=== PATIENT | female | born 1945 | race Hispanic/Latino ===

== ENCOUNTER 2017-06-24 15:12 | Outpatient (CLI) | payer MEDICARE, MEDICAID ==
--- NOTE | 2017-06-25 09:37 | SJPRAD ---
THREE VIEWS RIGHT SHOULDER: Date: 06-25-17 Comparison: None. History: Right shoulder pain. FINDINGS: There is degenerative change involving the right acromioclavicular joint with joint space narrowing, subchondral sclerosis and osteophyte formation superiorly and inferiorly. There is no widening of the coracoclavicular interspace. There is no displaced fracture or dislocation seen. IMPRESSION: Right AC joint degenerative change with no acute fracture or dislocation seen. POS: [facility]
== END 2017-06-24 15:13 | disposition home or self-care (01) ==
LOC: MWLC RAD 15:12
PROVIDERS: ATTEND Family Medicine
DX: M25.511 Pain in right shoulder (principal)

== ENCOUNTER 2017-06-30 09:27 | Outpatient (CLI) | payer MEDICARE, MEDICAID ==
--- NOTE | 2017-06-30 14:00 | MMO ---
BILATERAL DIAGNOSTIC MAMMOGRAMS: Date: 06/30/17 Diagnostic study is performed because of history of breast cancer. There is a history of left breast cancer in 2012 Comparison made to films from 2013, 2015, and 2016. FINDINGS: Postoperative changes on the left again noted. There are benign-appearing calcifications in both celina sts. No mass or distortion. No interval change seen. Recommend one year follow-up. IMPRESSION: BIRADS 2: Benign Finding(s) POS: [facility]
== END 2017-06-30 09:28 | disposition home or self-care (01) ==
LOC: MAMMO 09:27
PROVIDERS: ATTEND Internal Medicine Medical Oncology
DX: C50.919 Malignant neoplasm of unspecified site of unspecified female breast (principal)
CPT/HCPCS: 77066; G0204

== ENCOUNTER 2017-12-24 14:56 | Outpatient (CLI) | payer MEDICARE, MEDICAID | END 2017-12-24 14:57 | disposition home or self-care (01) | LOC: BICRAD 14:56 | PROVIDERS: ATTEND Family Medicine | DX: M16.12 Unilateral primary osteoarthritis, left hip (principal); R91.8 Other nonspecific abnormal finding of lung field | CPT/HCPCS: 71046 ==

== ENCOUNTER 2018-03-09 14:26 | Outpatient (CLI) | payer MEDICARE, MEDICAID | END 2018-03-09 14:27 | disposition home or self-care (01) | LOC: BICRAD 14:26 | PROVIDERS: ATTEND Family Medicine | DX: M60.811 Other myositis, right shoulder (principal); M54.9 Dorsalgia, unspecified; R93.8 Abnormal findings on diagnostic imaging of other specified body structures | CPT/HCPCS: 72072; 72100 ==

== ENCOUNTER 2018-07-01 09:12 | Outpatient (CLI) | payer MEDICARE, MEDICAID ==
--- NOTE | 2018-07-01 12:32 | BD ---
DEXA Bone Density: INDICATION: Osteopenia, postmenopausal bone mineral screening evaluation. Lumbar Spine: BMD (g/cm2) L1 0.879 T-Score: -1.0 L2 0.853 T-Score: -1.6 L3 0.84 T-Score: -2.2 L4 0.78 T-Score: -2.5 L1-L4 0.84 T-Score: -1.9 Femoral Neck: 0.678 T-Score: -1.6 Total Femur: 0.98 T-Score: 0.4 Impression: T-scores indicate osteopenia placing the patient at increased risk for fracture. Major 10-year osteo porotic fracture risk is calculated at 16%. POS: [facility]
== END 2018-07-01 09:13 | disposition home or self-care (01) ==
LOC: BICMAMMO 09:12
PROVIDERS: ATTEND Internal Medicine Medical Oncology
DX: Z12.31 Encounter for screening mammogram for malignant neoplasm of breast (principal); C50.919 Malignant neoplasm of unspecified site of unspecified female breast; M85.89 Other specified disorders of bone density and structure, multiple sites
CPT/HCPCS: 77063; 77067; 77080

== ENCOUNTER 2018-07-21 10:17 | Outpatient (CLI) | payer MEDICARE, MEDICAID ==
--- NOTE | 2018-07-21 11:21 | RAD ---
PA AND LATERAL CHEST: INDICATIONS: Dyspnea. COMPARISON: Prior PA and lateral dated 01/14/2018. FINDINGS: There is stable cardiomegaly. There are scattered areas of bronchiectasis and fibrosis, which are st able. No confluent air space opacity is evident. Surgical clips are seen within the right upper jessica drant, consistent with cholecystectomy. No acute osseous abnormality is evident. IMPRESSION: 1. Stable chronic lung changes. 2. Stable cardiomegaly. POS: [facility]
== END 2018-07-21 10:18 | disposition home or self-care (01) ==
LOC: RAD 10:17
PROVIDERS: ATTEND Internal Medicine Pulmonary Disease
DX: R06.00 Dyspnea, unspecified (principal); I51.7 Cardiomegaly; J98.4 Other disorders of lung
CPT/HCPCS: 71046

== ENCOUNTER 2018-08-01 09:33 | Emergency (ER) | payer MEDICARE, MEDICAID ==
[2018-08-01] MEDS ORDERED: Fluorescein Opthalmic Strip ONE (10:26)
[2018-08-01] MEDS ORDERED: Proparacaine 0.5% Opth 15 ML BOT ONE (10:30)
[2018-08-01] MEDS ORDERED: Nitrazine Tape 1 ROLL ONE (10:32)
== END 2018-08-01 14:00 | disposition home or self-care (01) ==
LOC: ERS 09:33
DX: H54.7 Unspecified visual loss (principal); E78.5 Hyperlipidemia, unspecified; I10 Essential (primary) hypertension; Z79.899 Other long term (current) drug therapy; Z79.84 Long term (current) use of oral hypoglycemic drugs
CPT/HCPCS: 99284

== ENCOUNTER 2018-10-12 07:18 | Emergency (ER) | payer MEDICARE, MEDICAID ==
--- NOTE | 2018-10-12 09:09 | RAD ---
RIGHT HIP 2 VIEWS: INDICATION: Trauma. Injury with pain. FINDINGS: There are degenerative changes at the hip with spurring from the femoral head. There is irregularity along the superior cortex of the subcapital region seen on the AP projection. A fracture is not see n on the lateral view; however, I cannot exclude a subcapital fracture. Recommend further evaluation with CT scan right hip. POS: [facility]
--- NOTE | 2018-10-12 09:18 | CT ---
CT OF RIGHT HIP PERFORMED WITHOUT CONTRAST ENHANCEMENT: HISTORY: Right hip pain that has worsened over the past weekend. FINDINGS: The visualized intrapelvic contents appear unremarkable. There are arthritic changes of the hip. There is spurring along the femoral head and neck junction. I do not appreciate a significant degree of joint space narrowing. There is some spurring along the margin of the acetabulum. There are no signs of any fractures. There are arthritic changes of the symphysis pubis incidentally noted. No signs of any enlarged bursa or any type of soft tissue mass. IMPRESSION: Mild arthritic changes of the right hip. POS: [facility]
== END 2018-10-12 09:06 | disposition home or self-care (01) ==
LOC: ERS 07:18
DX: M16.11 Unilateral primary osteoarthritis, right hip (principal); E11.9 Type 2 diabetes mellitus without complications; E78.5 Hyperlipidemia, unspecified; I10 Essential (primary) hypertension; Z79.899 Other long term (current) drug therapy; Z79.84 Long term (current) use of oral hypoglycemic drugs

== ENCOUNTER 2018-11-26 00:11 | Outpatient (CLI) | payer MEDICARE, MEDICAID ==
[2018-11-26 10:30] LABS: Hemoglobin 12.1 g/dL (12.0-16.0); Mean Corpuscular HGB CONC 33.7 g/dL (32.0-36.0); Mean Platelet Volume 7.2 fL (7.4-10.4); Platelet Count 212 thou/uL (130-400); RBC Distribution Width 11.1 % (11.5-14.5); Red Blood Cell (RBC) Count 3.78 mill/uL (4.20-5.40); White Blood Cell (WBC) Count 7.2 thou/uL (4.8-10.8)
[2018-11-26 10:50] LABS: Anion Gap 15 mmol/L (10-20); BUN (Urea Nitrogen) 27 mg/dL (9.8-20.1); Calc. Creatinine Clearance 0 mL/min (70-130); Calcium 10.1 mg/dL (7.8-10.44); Carbon Dioxide 28 mmol/L (23-31); Chloride 101 mmol/L (98-107); Estimated GFR-MDRD 39; Glucose 166 mg/dL (83-110); Potassium 4.6 mmol/L (3.5-5.1); Sodium 139 mmol/L (136-145)
== END 2018-11-26 00:12 | disposition home or self-care (01) ==
LOC: LABBT 00:11
PROVIDERS: ATTEND Internal Medicine Cardiovascular Disease
DX: Z01.812 Encounter for preprocedural laboratory examination (principal)
CPT/HCPCS: 80048; 85027; 85610

== ENCOUNTER 2018-11-30 05:50 | Day surgery (SDC) | payer MEDICARE, MEDICAID ==
[2018-11-26 09:55] VITALS: BMI 33.2
[2018-11-30] MEDS ORDERED: Diazepam 5 MG TAB ONE (06:12)
[2018-11-30 06:55] LABS: Anion Gap 14 mmol/L (10-20); BUN (Urea Nitrogen) 15 mg/dL (9.8-20.1); Calc. Creatinine Clearance 56 mL/min (70-130); Calcium 9.9 mg/dL (7.8-10.44); Carbon Dioxide 23 mmol/L (23-31); Chloride 96 mmol/L (98-107); Estimated GFR-MDRD 49; Glucose 123 mg/dL (83-110); Potassium 4.4 mmol/L (3.5-5.1); Sodium 129 mmol/L (136-145)
[2018-11-30] MEDS ORDERED: Midazolam HCl 2 mg/2 ml Vial ONE (07:27)
[2018-11-30] MEDS ORDERED: Fentanyl 100 MCG/2 ML VIAL ONE (07:27)
[2018-11-30] MEDS ORDERED: Iopamidol 370 76% 100 ML VIAL ONE (09:50)
== END 2018-11-30 11:07 | disposition home or self-care (01) ==
LOC: CCL 05:50
PROVIDERS: ATTEND Internal Medicine Cardiovascular Disease
PROC: 4A023N7 Measurement of Cardiac Sampling and Pressure, Left Heart, Percutaneous Approach (ICD-10-PCS; principal; 2018-11-30)
PROC: B2111ZZ Fluoroscopy of Multiple Coronary Arteries using Low Osmolar Contrast (ICD-10-PCS; 2018-11-30)
DX: I25.10 Atherosclerotic heart disease of native coronary artery without angina pectoris (principal); E11.9 Type 2 diabetes mellitus without complications; I10 Essential (primary) hypertension; E78.00 Pure hypercholesterolemia, unspecified; M19.90 Unspecified osteoarthritis, unspecified site; Z79.82 Long term (current) use of aspirin; Z79.83 Long term (current) use of bisphosphonates; Z79.84 Long term (current) use of oral hypoglycemic drugs; Z79.899 Other long term (current) drug therapy; Z91.040 Latex allergy status
CPT/HCPCS: 76942; 80048; 93458; 99152; C1760; C1769; J1644; J2250; J3010; Q9967

== ENCOUNTER 2019-01-18 12:56 | Outpatient (CLI) | payer MEDICARE, MEDICAID ==
--- NOTE | 2019-01-18 13:13 | RAD ---
XR Chest Pa Lat @ [facility] HISTORY: Dyspnea COMPARISON: 07/21/2018 FINDINGS: The heart is enlarged but stable. The aorta is tortuous. Chronic changes again seen bilater ally. No lobar consolidation, pneumothoraces, merna pulmonary edema or pleural effusions are seen. There are degenerative changes in the spine. IMPRESSION: Stable exam. No radiographic evidence of acute cardiopulmonary process.
== END 2019-01-18 12:57 | disposition home or self-care (01) ==
LOC: RAD 12:56
PROVIDERS: ATTEND Internal Medicine Pulmonary Disease
DX: R06.00 Dyspnea, unspecified (principal)
CPT/HCPCS: 71046

== ENCOUNTER 2019-03-13 05:22 | Emergency (ER) | payer MEDICARE, MEDICAID ==
--- NOTE | 2019-03-13 07:42 | RAD ---
EXAM: 3 views of the right foot HISTORY: Fall with right foot pain COMPARISON: None FINDINGS: 3 views of the right foot shows fractures of the necks of the third through fifth metatarsa ls. Mild soft tissue swelling is seen. No degenerative changes are present. IMPRESSION: Third through fifth metatarsal fractures
--- NOTE | 2019-03-13 07:43 | RAD ---
EXAM: 3 views of the left wrist HISTORY: Wrist pain after fall COMPARISON: None FINDINGS: 3 views of the left wrist shows a fracture of the distal radius which is intra-articular. A n associated ulnar styloid fracture is seen. Mild soft tissue swelling is seen. No degenerative changes are present. IMPRESSION: Distal radius and associated ulnar styloid fracture.
== END 2019-03-13 06:24 | disposition home or self-care (01) ==
LOC: ERS 05:22
DX: S52.502A Unspecified fracture of the lower end of left radius, initial encounter for closed fracture (principal); S52.612A Displaced fracture of left ulna styloid process, initial encounter for closed fracture; S92.332A Displaced fracture of third metatarsal bone, left foot, initial encounter for closed fracture; S92.342A Displaced fracture of fourth metatarsal bone, left foot, initial encounter for closed fracture; S92.352A Displaced fracture of fifth metatarsal bone, left foot, initial encounter for closed fracture; E78.5 Hyperlipidemia, unspecified; I10 Essential (primary) hypertension; E11.9 Type 2 diabetes mellitus without complications; Z79.84 Long term (current) use of oral hypoglycemic drugs; Z79.82 Long term (current) use of aspirin; Z79.899 Other long term (current) drug therapy; Z85.3 Personal history of malignant neoplasm of breast; W18.09XA Striking against other object with subsequent fall, initial encounter
CPT/HCPCS: 25600; 28470

== ENCOUNTER 2019-04-15 12:15 | Outpatient (CLI) | payer MEDICARE, MEDICAID ==
--- NOTE | 2019-04-15 13:00 | ULT ---
EXAM: Left lower extremity venous Doppler HISTORY: left lower extremity edema. FINDINGS: Grayscale, color-flow, Doppler evaluation, spectral analysis of the left lower extremity venous struc tures is performed with 2-D imaging. The left common femoral, superficial femoral, popliteal, posterior tibial, proximal greater saphenous and profunda femoral veins are imaged. There is normal luminal compressibility, flow, and augmentation in the visualized deep venous structu res of the left lower extremity. IMPRESSION: No evidence of a deep vein thrombosis in the visualized deep venous structures left lower extremity.
== END 2019-04-15 12:16 | disposition home or self-care (01) ==
LOC: BICULT 12:15
PROVIDERS: ATTEND Family Medicine
DX: M79.89 Other specified soft tissue disorders (principal); R60.9 Edema, unspecified

== ENCOUNTER 2019-04-18 14:38 | Emergency (ER) | payer MEDICARE, MEDICAID ==
[2019-04-18] MEDS ORDERED: Meclizine HCl 25 MG TAB ONE (15:31)
[2019-04-18] MEDS ORDERED: Ondansetron PF 4 MG/2 ML Vial ONE (15:31)
--- NOTE | 2019-04-18 15:53 | CT ---
CT OF BRAIN PERFORMED WITHOUT CONTRAST ENHANCEMENT: HISTORY: Syncopal episode. FINDINGS: Ventricular and cisternal system shows fairly age appropriate change. There are no signs of intracer ebral hemorrhage or extraaxial fluid collections. The mastoid air cells and visualized sinuses are c lear. IMPRESSION: No acute intracranial abnormalities. POS: [facility]
[2019-04-18 16:00] LABS: #Eosinphils 0.1 thou/uL (0.0-0.7); #Lymphocytes 1.7 thou/uL (1.20-3.40); #Monocytes 0.5 thou/uL (0.11-0.59); #Neutrophils 4.2 thou/uL (1.40-6.50); %Basophils 0.6 % (0.0-1.0); %Eosinophils 2.1 % (0.0-10.0); %Lymphocytes 25.6 % (21.0-51.0); %Neutrophils 64.7 % (42.0-75.0); Mean Corpuscular HGB CONC 35.3 g/dL (32.0-36.0); Mean Corpuscular Volume 93.4 fL (78.0-98.0); Mean Platelet Volume 6.8 fL (7.4-10.4); Platelet Count 203 thou/uL (130-400); RBC Distribution Width 10.8 % (11.5-14.5); Red Blood Cell (RBC) Count 3.62 mill/uL (4.20-5.40); White Blood Cell (WBC) Count 6.5 thou/uL (4.8-10.8)
[2019-04-18 16:20] LABS: ALT (SGPT) 15 U/L (8-55); AST (SGOT) 19 U/L (5-34); Albumin 4.4 g/dL (3.4-4.8); Alkaline Phosphatase 51 U/L (40-150); Anion Gap 15 mmol/L (10-20); BUN (Urea Nitrogen) 28 mg/dL (9.8-20.1); Bilirubin, Total 0.4 mg/dL (0.2-1.2); Calc. Creatinine Clearance 0 mL/min (70-130); Calcium 10.2 mg/dL (7.8-10.44); Carbon Dioxide 23 mmol/L (23-31); Chloride 97 mmol/L (98-107); Estimated GFR-MDRD 34; Globulin 2.7 g/dL (2.4-3.5); Glucose 184 mg/dL (83-110); Potassium 5.1 mmol/L (3.5-5.1); Protein, Total 7.1 g/dL (6.0-8.3); Sodium 130 mmol/L (136-145)
[2019-04-18 16:49] LABS: Bilirubin Negative (Negative); Blood, Urine Negative (Negative); Clarity Clear (Clear); Glucose, Urine (Dipstick) Normal (Negative); Leukocyte Negative Leu/uL (Negative); Nitrite Negative (Negative); Protein, Urine (Dipstick) Negative (Neg-Trace); Urobilinogen Normal mg/dL (Less than 2)
== END 2019-04-18 18:32 | disposition home or self-care (01) ==
LOC: ERS 14:38
DX: R42 Dizziness and giddiness (principal); E11.9 Type 2 diabetes mellitus without complications; E78.5 Hyperlipidemia, unspecified; I10 Essential (primary) hypertension
CPT/HCPCS: 36416; 70450; 80053; 81003; 85025; 96374; J2405; J8597

== ENCOUNTER 2019-07-05 11:53 | Outpatient (CLI) | payer MEDICARE, MEDICAID ==
--- NOTE | 2019-07-05 13:25 | MMO ---
Bilateral MAMMO Bilat Screen [facility]. CLINICAL HISTORY: Patient is 73 years old and is seen for screening. The patient has no family history of breast cancer. 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 The patient has a history of left Lumpectomy in 2012 - malignant. VIEWS: The views performed were: bilateral craniocaudal with tomosynthesis; bilateral mediolateral oblique with tomosynthesis; and left craniocaudal. FILMS COMPARED: The present examination has been compared to prior imaging studies performed at [facility] on 07/13/2010, 04/15/2012 and 07/01/2018. This study has been interpreted with the assistance of computer-aided detection. MAMMOGRAM FINDINGS: There are scattered fibroglandular densities. There are stable benign appearing calcifications seen in both breasts. There are also vascular calcifications. There are no suspicious masses, suspicious calcifications, or new areas of architectural distortion. IMPRESSION: THERE IS NO MAMMOGRAPHIC EVIDENCE OF MALIGNANCY. A ROUTINE FOLLOW-UP MAMMOGRAM IN 1 YEAR IS RECOMMENDED. THE RESULTS OF THIS EXAM WERE SENT TO THE PATIENT. ACR BI-RADS Category 2 - Benign finding MAMMOGRAPHY NOTE: 1. A negative mammogram report should not delay a biopsy if a dominant of clinically suspicious mass is present. 2. Approximately 10% to 15% of breast cancers are not detected by mammography. 3. Adenosis and dense breasts may obscure an underlying neoplasm. Reported by: MÓNICA RAINEY MD Electonically Signed: [id number]
== END 2019-07-05 11:54 | disposition home or self-care (01) ==
LOC: BICMAMMO 11:53
PROVIDERS: ATTEND Internal Medicine Medical Oncology
DX: Z12.31 Encounter for screening mammogram for malignant neoplasm of breast (principal); Z98.890 Other specified postprocedural states
CPT/HCPCS: 77063; 77067

== ENCOUNTER 2019-08-16 12:53 | Outpatient (CLI) | payer MEDICARE, MEDICAID ==
--- NOTE | 2019-08-16 14:25 | BD ---
DEXA BONE DENSITY SCAN: DATE: 08/16/2019. COMPARISON: None. HISTORY: Evaluate for osteoporosis, postmenopausal female. FINDINGS: Lumbar Spine: BMD (g/cm2) L1 0.843 T-Score: -1.3 L2 0.885 T-Score: -1.3 L3 0.857 T-Score: -2.1 L4 0.883 T-Score: -1.6 Femoral Neck: 0.690 T-Score: -1.4 Total Femur: 0.987 T-Score: 0.4 The FRAX-WHO fracture risk assessment tool is not reported as the patient is being treated for osteo porosis IMPRESSION: Osteopenia within the lumbar spine and femoral neck correlating with a moderately increased risk for fracture. Transcribed Date/Time: 08/16/2019 3:08 PM
== END 2019-08-16 12:54 | disposition home or self-care (01) ==
LOC: BICMAMMO 12:53
PROVIDERS: ATTEND Internal Medicine Medical Oncology
DX: M85.89 Other specified disorders of bone density and structure, multiple sites (principal); C50.919 Malignant neoplasm of unspecified site of unspecified female breast; Z78.0 Asymptomatic menopausal state
CPT/HCPCS: 77080

== ENCOUNTER 2020-02-29 14:40 | Outpatient (CLI) | payer MEDICARE, MEDICAID ==
--- NOTE | 2020-02-29 15:14 | ULT ---
EXAM: Soft tissue ultrasound of the left knee DATE: 02/29/2020 12:00 AM INDICATION: Left knee pain for 2 months concern for Cabrales's cyst COMPARISON: None. FINDING: No visible Cabrales's cyst is evident. No sonographic abnormalities seen within additional reg ions of pain in the left knee IMPRESSION:No sonographic abnormality demonstrated.
== END 2020-02-29 14:41 | disposition home or self-care (01) ==
LOC: BICULT 14:40
PROVIDERS: ATTEND Family Medicine
DX: M25.562 Pain in left knee (principal)
CPT/HCPCS: 76999

== ENCOUNTER 2020-07-18 12:36 | Outpatient (CLI) | payer MEDICARE, MEDICAID ==
--- NOTE | 2020-07-18 13:14 | RAD ---
EXAM: CHEST TWO VIEWS 07/18/2020 1:11 PM HISTORY: Dyspnea COMPARISON: January 18, 2019 FINDINGS: Lungs: No acute airspace consolidation is evident. There is stable mild prominence of the interstiti al lung markings which may reflect some sequela of underlying interstitial fibrosis. Heart: Stable mild cardiomegaly Pulmonary Vessels: Normal. Costophrenic Angles: Clear. Pneumothorax: None. Osseous Structures: There is scattered degenerative and osteoarthritic change present. Additional Findings: There are cholecystectomy clips within the right upper quadrant of the abdomen . IMPRESSION: Mild cardiomegaly without evidence of cardiac decompensation. Persistent mild prominence of the interstitial lung markings likely reflecting sequela of mild underl mihir interstitial fibrosis.
== END 2020-07-18 12:37 | disposition home or self-care (01) ==
LOC: BICRAD 12:36
PROVIDERS: ATTEND Internal Medicine Pulmonary Disease
DX: R06.00 Dyspnea, unspecified (principal); I51.7 Cardiomegaly; J84.89 Other specified interstitial pulmonary diseases
CPT/HCPCS: 71046

== ENCOUNTER 2020-07-31 13:50 | Outpatient (CLI) | payer MEDICARE, MEDICAID ==
--- NOTE | 2020-07-31 14:56 | MMO ---
Bilateral MAMMO Bilat Screen [facility]. CLINICAL HISTORY: Patient is 75 years old and is seen for screening. The patient has no family history of breast cancer. 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 The patient has a history of left Lumpectomy in 2012 - malignant. VIEWS: The views performed were: bilateral craniocaudal with tomosynthesis and bilateral mediolateral oblique with tomosynthesis. FILMS COMPARED: The present examination has been compared to prior imaging studies performed at [facility] on 07/13/2010, 04/15/2012, 07/01/2018 and 07/05/2019. This study has been interpreted with the assistance of computer-aided detection. MAMMOGRAM FINDINGS: There are scattered fibroglandular densities. Benign calcifications are noted bilaterally. There are stable left post-operative changes. There are no suspicious masses, suspicious calcifications, or new areas of architectural distortion. IMPRESSION: THERE IS NO MAMMOGRAPHIC EVIDENCE OF MALIGNANCY. A ROUTINE FOLLOW-UP MAMMOGRAM IN 1 YEAR IS RECOMMENDED. THE RESULTS OF THIS EXAM WERE SENT TO THE PATIENT. ACR BI-RADS Category 2 - Benign finding MAMMOGRAPHY NOTE: 1. A negative mammogram report should not delay a biopsy if a dominant of clinically suspicious mass is present. 2. Approximately 10% to 15% of breast cancers are not detected by mammography. 3. Adenosis and dense breasts may obscure an underlying neoplasm. Reported by: DEE DEE MELENDEZ MD Electonically Signed: [id number]
== END 2020-07-31 13:51 | disposition home or self-care (01) ==
LOC: BICMAMMO 13:50
PROVIDERS: ATTEND Internal Medicine Medical Oncology
DX: Z12.31 Encounter for screening mammogram for malignant neoplasm of breast (principal); Z85.3 Personal history of malignant neoplasm of breast; Z98.890 Other specified postprocedural states
CPT/HCPCS: 77063; 77067

== ENCOUNTER 2020-08-17 13:02 | Outpatient (CLI) | payer MEDICARE, MEDICAID ==
--- NOTE | 2020-08-17 14:34 | BD ---
EXAM: DEXA bone density examination HISTORY: 75-year-old postmenopausal female for screening COMPARISON: 08/16/2019 FINDINGS: L1--bone mineral density 0.940 g/sq cm; T score -0.5 L2--bone mineral density 0.776 g/sq cm; T score -2.3 L3--bone mineral density 0.860 g/sq cm; T score -2.0 L4--bone mineral density 0.854 g/sq cm; T score -1.9 Total L1-L4--bone mineral density 0.859 g/sq cm; T score -1.7 Left femoral neck--bone mineral density0.651; T score -1.8 Total proximal left femur--bone mineral density 0.973; T score 0.3 IMPRESSION: Osteopenia. The bone density in the hip and spine have not changed significantly compared to the prior exam.
== END 2020-08-17 13:03 | disposition home or self-care (01) ==
LOC: BICMAMMO 13:02
PROVIDERS: ATTEND Internal Medicine Medical Oncology
DX: Z13.820 Encounter for screening for osteoporosis (principal); C50.212 Malignant neoplasm of upper-inner quadrant of left female breast; N95.8 Other specified menopausal and perimenopausal disorders; M85.89 Other specified disorders of bone density and structure, multiple sites
CPT/HCPCS: 77080

== ENCOUNTER 2021-06-04 09:48 | Outpatient (CLI) | payer MEDICARE, MEDICAID, OTHER | END 2021-06-04 09:49 | disposition home or self-care (01) | LOC: RAD 09:48 | PROVIDERS: ATTEND Internal Medicine Pulmonary Disease | DX: R06.00 Dyspnea, unspecified (principal) | CPT/HCPCS: 71046 ==

== ENCOUNTER 2021-08-01 09:49 | Outpatient (CLI) | payer MEDICARE, MEDICAID | END 2021-08-01 09:50 | disposition home or self-care (01) | LOC: BICMAMMO 09:49 | PROVIDERS: ATTEND Internal Medicine Medical Oncology | DX: Z12.31 Encounter for screening mammogram for malignant neoplasm of breast (principal); Z85.3 Personal history of malignant neoplasm of breast; Z98.890 Other specified postprocedural states | CPT/HCPCS: 77063; 77067 ==

== ENCOUNTER 2021-12-17 13:09 | Outpatient (CLI) | payer MEDICARE, MEDICAID | END 2021-12-17 13:10 | disposition home or self-care (01) | LOC: BICMAMMO 13:09 | PROVIDERS: ATTEND Internal Medicine Medical Oncology | DX: M85.851 Other specified disorders of bone density and structure, right thigh (principal); M85.852 Other specified disorders of bone density and structure, left thigh; M81.0 Age-related osteoporosis without current pathological fracture; Z85.3 Personal history of malignant neoplasm of breast | CPT/HCPCS: 77080 ==

== ENCOUNTER 2021-12-25 18:59 | Inpatient (IN) | payer MEDICARE, MEDICAID ==
[2021-12-25 19:27] LABS: #Eosinphils 0.2 thou/uL (0.0-0.7); #Lymphocytes 2.1 thou/uL (1.20-3.40); #Monocytes 0.6 thou/uL (0.11-0.59); #Neutrophils 5.4 thou/uL (1.40-6.50); %Basophils 0.6 % (0.0-1.0); %Eosinophils 2.5 % (0.0-10.0); %Lymphocytes 25.4 % (21.0-51.0); %Monocytes 6.7 % (0.0-10.0); %Neutrophils 64.7 % (42.0-75.0); Mean Corpuscular HGB CONC 33.7 g/dL (32.0-36.0); Mean Corpuscular Hemoglobin 32.8 pg (27.0-31.0); Mean Corpuscular Volume 97.3 fL (78.0-98.0); Mean Platelet Volume 6.9 fL (7.4-10.4); Platelet Count 234 thou/uL (130-400); RBC Distribution Width 10.8 % (11.5-14.5); Red Blood Cell (RBC) Count 3.66 mill/uL (4.20-5.40); White Blood Cell (WBC) Count 8.3 thou/uL (4.8-10.8)
[2021-12-25 19:53] LABS: ALT (SGPT) 14 U/L (8-55); AST (SGOT) 24 U/L (5-34); Albumin 4.6 g/dL (3.4-4.8); Alkaline Phosphatase 54 U/L (40-110); Anion Gap 13 mmol/L (10-20); BUN (Urea Nitrogen) 27 mg/dL (9.8-20.1); Bilirubin, Total 0.4 mg/dL (0.2-1.2); Calc. Creatinine Clearance 0 mL/min (70-130); Calcium 9.7 mg/dL (7.8-10.44); Carbon Dioxide 22 mmol/L (23-31); Chloride 104 mmol/L (98-107); Globulin 2.9 g/dL (2.4-3.5); Glucose 180 mg/dL (83-110); Protein, Total 7.5 g/dL (5.8-8.1); Sodium 132 mmol/L (136-145)
[2021-12-25 20:12] LABS: Potassium 6.7 mmol/L (3.5-5.1)
[2021-12-25] MEDS ORDERED: Furosemide 40 MG/4 ML VIAL ONE (20:16)
[2021-12-25] MEDS ORDERED: Calcium Gluc 4.6 MEQ/10 ML (100 MG/ML) ONE (20:25)
[2021-12-25] MEDS ORDERED: CALCIUM GLUC 1GM/NS 50ML BAG ONE (20:25)
[2021-12-25] MEDS ORDERED: Sodium Bicarb 50 MEQ/50 ML Abboject 8.4% SYRINGE ONE (20:27)
[2021-12-25] MEDS ORDERED: Insulin Regular 300 UNITS/3 ML VIAL ONE (20:28)
[2021-12-25] MEDS ORDERED: Dextrose 50% Abboject 50 ML SYRINGE SLOW IVP SCH (20:45)
[2021-12-25] MEDS ORDERED: Albuterol Sulfate 2.5 mg/3 ml Neb ONE (20:49)
[2021-12-25] MEDS ORDERED: Sodium Chloride 0.9% 1,000 ML IV SCH (21:00)
[2021-12-25 23:10] VITALS: BMI 40.5
[2021-12-26 00:39] LABS: Anion Gap 19 mmol/L (10-20); BUN (Urea Nitrogen) 27 mg/dL (9.8-20.1); Calc. Creatinine Clearance 41 mL/min (70-130); Calcium 10.3 mg/dL (7.8-10.44); Carbon Dioxide 19 mmol/L (23-31); Chloride 103 mmol/L (98-107); Glucose 133 mg/dL (83-110); Potassium 6.1 mmol/L (3.5-5.1); Sodium 135 mmol/L (136-145)
[2021-12-26] MEDS: Sodium Chloride 0.9% 1,000 ML IV SCH ×2 (00:44→14:30)
[2021-12-26] MEDS ORDERED: Ondansetron ODT 4 MG TAB PO PRN (00:55)
[2021-12-26] MEDS ORDERED: Ondansetron PF 4 MG/2 ML Vial IVP PRN (00:55)
[2021-12-26] MEDS ORDERED: Acetaminophen 325 MG TAB PO PRN (00:55)
[2021-12-26] MEDS ORDERED: Acetaminophen 650 MG Suppository PR PRN (00:55)
[2021-12-26] MEDS ORDERED: Dextrose 5% in Water 1,000 ML IV PRN (00:59)
[2021-12-26] MEDS ORDERED: Dextrose 50% Abboject 50 ML SYRINGE SLOW IVP PRN (00:59)
[2021-12-26] MEDS ORDERED: HumaLOG 300 UNITS/3 ML VIAL SC PRN (00:59)
[2021-12-26 04:53] LABS: #Basophils 0.1 thou/uL (0.0-0.2); #Eosinphils 0.1 thou/uL (0.0-0.7); #Lymphocytes 1.8 thou/uL (1.20-3.40); #Monocytes 0.7 thou/uL (0.11-0.59); %Basophils 0.6 % (0.0-1.0); %Eosinophils 0.8 % (0.0-10.0); %Lymphocytes 21.4 % (21.0-51.0); %Monocytes 7.6 % (0.0-10.0); %Neutrophils 69.6 % (42.0-75.0); Hemoglobin 11.3 g/dL (12.0-16.0); Mean Corpuscular HGB CONC 32.9 g/dL (32.0-36.0); Mean Corpuscular Hemoglobin 32.2 pg (27.0-31.0); Mean Corpuscular Volume 97.9 fL (78.0-98.0); Mean Platelet Volume 6.9 fL (7.4-10.4); Platelet Count 208 thou/uL (130-400); RBC Distribution Width 11.1 % (11.5-14.5); Red Blood Cell (RBC) Count 3.52 mill/uL (4.20-5.40); White Blood Cell (WBC) Count 8.6 thou/uL (4.8-10.8)
[2021-12-26 05:13] LABS: Anion Gap 14 mmol/L (10-20); BUN (Urea Nitrogen) 27 mg/dL (9.8-20.1); Calc. Creatinine Clearance 44 mL/min (70-130); Calcium 9.8 mg/dL (7.8-10.44); Carbon Dioxide 25 mmol/L (23-31); Chloride 104 mmol/L (98-107); Glucose 147 mg/dL (83-110); Potassium 6.5 mmol/L (3.5-5.1); Sodium 136 mmol/L (136-145)
[2021-12-26 07:56] LABS: Hemoglobin A1c 6.5 % (4.0-6.0)
[2021-12-26] MEDS ORDERED: LOKELMA 10 GM PACKET PO SCH ×2 (08:00→15:00)
[2021-12-26 08:57] LABS: Bacteria/HPF None Seen HPF (None Seen); RBC/HPF 0-3 HPF (0-3); Squamous Epithelial 0-3 HPF (0-3); WBC/HPF 0-3 HPF (0-3)
[2021-12-26] MEDS: HumaLOG 300 UNITS/3 ML VIAL SC PRN (11:20)
[2021-12-26 12:00] LABS: SARS-CoV-2 PCR by NAA Not Detected (NotDetected)
[2021-12-26] MEDS ORDERED: hydrALAZINE 25 MG TAB PO SCH (12:15)
[2021-12-26 15:16] LABS: Anion Gap 16 mmol/L (10-20); BUN (Urea Nitrogen) 25 mg/dL (9.8-20.1); Calc. Creatinine Clearance 46 mL/min (70-130); Calcium 9.9 mg/dL (7.8-10.44); Carbon Dioxide 21 mmol/L (23-31); Chloride 102 mmol/L (98-107); Glucose 188 mg/dL (83-110); Potassium 5.1 mmol/L (3.5-5.1); Sodium 134 mmol/L (136-145)
[2021-12-26] MEDS: hydrALAZINE 25 MG TAB PO SCH (19:51)
[2021-12-26] MEDS ORDERED: LOKELMA 5 GM PACKET PO SCH (20:00)
[2021-12-26] MEDS ORDERED: Melatonin 3 MG TAB PO PRN (22:00)
[2021-12-27] MEDS: Sodium Chloride 0.9% 1,000 ML IV SCH ×2 (01:13→11:07)
[2021-12-27 05:14] LABS: #Eosinphils 0.4 thou/uL (0.0-0.7); #Lymphocytes 2.2 thou/uL (1.20-3.40); #Monocytes 0.5 thou/uL (0.11-0.59); #Neutrophils 2.9 thou/uL (1.40-6.50); %Basophils 0.4 % (0.0-1.0); %Eosinophils 5.9 % (0.0-10.0); %Lymphocytes 37.1 % (21.0-51.0); %Monocytes 8.3 % (0.0-10.0); %Neutrophils 48.3 % (42.0-75.0); Hemoglobin 11.3 g/dL (12.0-16.0); Mean Corpuscular HGB CONC 32.7 g/dL (32.0-36.0); Mean Corpuscular Hemoglobin 32.4 pg (27.0-31.0); Mean Corpuscular Volume 98.9 fL (78.0-98.0); Mean Platelet Volume 7.1 fL (7.4-10.4); Platelet Count 199 thou/uL (130-400); Red Blood Cell (RBC) Count 3.51 mill/uL (4.20-5.40); White Blood Cell (WBC) Count 5.9 thou/uL (4.8-10.8)
[2021-12-27 05:31] LABS: Anion Gap 13 mmol/L (10-20); BUN (Urea Nitrogen) 22 mg/dL (9.8-20.1); Calc. Creatinine Clearance 54 mL/min (70-130); Calcium 9.5 mg/dL (7.8-10.44); Carbon Dioxide 24 mmol/L (23-31); Chloride 107 mmol/L (98-107); Glucose 140 mg/dL (83-110); Potassium 4.6 mmol/L (3.5-5.1); Sodium 139 mmol/L (136-145)
[2021-12-27] MEDS: hydrALAZINE 25 MG TAB PO SCH (08:28)
[2021-12-27] MEDS ORDERED: Polyethylene Glycol OPTH DROP 15 ML BOT L EYE SCH (09:00)
[2021-12-27] MEDS ORDERED: prednisoLONE 1% Ophth Susp 5 ml Bottle L EYE SCH (09:00)
[2021-12-27] MEDS: HumaLOG 300 UNITS/3 ML VIAL SC PRN (10:58)
[2021-12-27 12:08] VITALS: BP 177/77; TEMP 97.7
== END 2021-12-27 14:06 | disposition home or self-care (01) | DRG 683 ==
LOC: ERS 18:59 → 2SW 20:56 → OBSVTOIN 12-26 10:35
PROVIDERS: ADMIT Student in an Organized Health Care Education/Training Program; ATTEND Internal Medicine
DX: N17.9 Acute kidney failure, unspecified (principal); I47.1 Supraventricular tachycardia; Z68.41 Body mass index [BMI] 40.0-44.9, adult; E87.1 Hypo-osmolality and hyponatremia; E87.2 Acidosis; Z20.822 Contact with and (suspected) exposure to COVID-19; G47.33 Obstructive sleep apnea (adult) (pediatric); E87.5 Hyperkalemia; E78.5 Hyperlipidemia, unspecified; N18.32 Chronic kidney disease, stage 3b; I12.9 Hypertensive chronic kidney disease with stage 1 through stage 4 chronic kidney disease, or unspecified chronic kidney disease; R91.8 Other nonspecific abnormal finding of lung field; E66.9 Obesity, unspecified; E86.9 Volume depletion, unspecified; E11.22 Type 2 diabetes mellitus with diabetic chronic kidney disease; Z85.3 Personal history of malignant neoplasm of breast; Z91.040 Latex allergy status; Z79.899 Other long term (current) drug therapy; Z79.84 Long term (current) use of oral hypoglycemic drugs; Z90.49 Acquired absence of other specified parts of digestive tract; Z90.710 Acquired absence of both cervix and uterus
CPT/HCPCS: 36415; 36416; 71045; 71260; 76770; 80048; 80053; 81015; 83036; 83880; 84484; 85025; 93005; 94640; 94760; 96374; 96375; J0610; J1815; J1940; J7050; J7611; U0003; U0005

== ENCOUNTER 2022-05-07 13:00 | Outpatient (CLI) | payer OTHER, MEDICAID, MEDICARE | END 2022-05-07 13:01 | disposition home or self-care (01) | LOC: RAD 13:00 | PROVIDERS: ATTEND Internal Medicine Pulmonary Disease | DX: R06.02 Shortness of breath (principal); I51.7 Cardiomegaly | CPT/HCPCS: 71046 ==

== ENCOUNTER 2022-05-11 15:24 | Emergency (ER) | payer OTHER, MEDICAID ==
[2022-05-11 16:36] LABS: #Eosinphils 0.3 thou/uL (0.0-0.7); #Lymphocytes 1.8 thou/uL (1.20-3.40); #Monocytes 0.5 thou/uL (0.11-0.59); #Neutrophils 3.9 thou/uL (1.40-6.50); %Basophils 0.1 % (0.0-1.0); %Eosinophils 5.3 % (0.0-10.0); %Lymphocytes 27.3 % (21.0-51.0); %Monocytes 7.8 % (0.0-10.0); %Neutrophils 59.5 % (42.0-75.0); Hemoglobin 10.3 g/dL (12.0-16.0); Mean Corpuscular HGB CONC 33.3 g/dL (32.0-36.0); Mean Corpuscular Hemoglobin 31.9 pg (27.0-31.0); Mean Platelet Volume 7.7 fL (7.4-10.4); Platelet Count 186 thou/uL (130-400); Red Blood Cell (RBC) Count 3.22 mill/uL (4.20-5.40); White Blood Cell (WBC) Count 6.6 thou/uL (4.8-10.8)
[2022-05-11 16:52] LABS: ALT (SGPT) 11 U/L (8-55); AST (SGOT) 20 U/L (5-34); Albumin 3.9 g/dL (3.4-4.8); Alkaline Phosphatase 44 U/L (40-110); Anion Gap 16 mmol/L (10-20); BUN (Urea Nitrogen) 20 mg/dL (9.8-20.1); Bilirubin, Total 0.5 mg/dL (0.2-1.2); Calc. Creatinine Clearance 0 mL/min (70-130); Calcium 9.3 mg/dL (7.8-10.44); Carbon Dioxide 22 mmol/L (23-31); Chloride 105 mmol/L (98-107); Estimated GFR 46; Globulin 2.9 g/dL (2.4-3.5); Glucose 125 mg/dL (83-110); Potassium 4.5 mmol/L (3.5-5.1); Protein, Total 6.8 g/dL (5.8-8.1); Sodium 138 mmol/L (136-145)
[2022-05-11] MEDS ORDERED: Ketorolac Tromethamine 30 MG/ML VIAL ONE (17:22)
== END 2022-05-11 17:38 | disposition home or self-care (01) ==
LOC: ERS 15:24
DX: S29.011A Strain of muscle and tendon of front wall of thorax, initial encounter (principal); E11.9 Type 2 diabetes mellitus without complications; E78.5 Hyperlipidemia, unspecified; I10 Essential (primary) hypertension; Z79.899 Other long term (current) drug therapy; Z79.82 Long term (current) use of aspirin; Z79.84 Long term (current) use of oral hypoglycemic drugs
CPT/HCPCS: 71045; 80053; 83880; 84484; 85025; 93005; 96374; J1885

== ENCOUNTER 2022-08-13 12:55 | Outpatient (CLI) | payer OTHER, MEDICAID | END 2022-08-13 12:56 | disposition home or self-care (01) | LOC: BICMAMMO 12:55 | PROVIDERS: ATTEND Internal Medicine Medical Oncology | DX: Z12.31 Encounter for screening mammogram for malignant neoplasm of breast (principal); Z85.3 Personal history of malignant neoplasm of breast; Z98.890 Other specified postprocedural states | CPT/HCPCS: 77063; 77067 ==

== ENCOUNTER 2022-09-29 14:10 | Emergency (ER) | payer OTHER, MEDICAID ==
[2022-09-29] MEDS ORDERED: Meclizine HCl 25 MG TAB ONE (15:07)
[2022-09-29 15:15] LABS: Bilirubin Negative (Negative); Blood, Urine Negative (Negative); Clarity Clear (Clear); Glucose, Urine (Dipstick) Normal (Negative); Ketone, Urine Negative (Negative); Leukocyte Negative Leu/uL (Negative); Nitrite Negative (Negative); Protein, Urine (Dipstick) Negative (Neg-Trace); Specific Gravity, Urine 1.009 (1.002-1.036); Urobilinogen Normal mg/dL (Less than 2)
[2022-09-29 15:51] LABS: #Eosinphils 0.2 thou/uL (0.0-0.7); #Lymphocytes 1.6 thou/uL (1.20-3.40); #Monocytes 0.5 thou/uL (0.11-0.59); #Neutrophils 4.4 thou/uL (1.40-6.50); %Basophils 0.5 % (0.0-1.0); %Eosinophils 2.7 % (0.0-10.0); %Lymphocytes 24.3 % (21.0-51.0); %Monocytes 7.2 % (0.0-10.0); %Neutrophils 65.4 % (42.0-75.0); Hemoglobin 11.2 g/dL (12.0-16.0); Mean Corpuscular HGB CONC 35.7 g/dL (32.0-36.0); Mean Corpuscular Hemoglobin 34.3 pg (27.0-31.0); Mean Corpuscular Volume 96.2 fl (78.0-98.0); Mean Platelet Volume 8.2 fL (7.4-10.4); Platelet Count 169 10x3/uL (130-400); RBC Distribution Width 11.1 % (11.5-14.5); Red Blood Cell (RBC) Count 3.25 mill/uL (4.20-5.40); White Blood Cell (WBC) Count 6.7 10x3/uL (4.8-10.8)
[2022-09-29 15:58] LABS: ALT (SGPT) 10 U/L (8-55); AST (SGOT) 14 U/L (5-34); Albumin 4.2 g/dL (3.4-4.8); Alkaline Phosphatase 40 U/L (40-110); Anion Gap 13 mmol/L (10-20); BUN (Urea Nitrogen) 26 mg/dL (9.8-20.1); Bilirubin, Total 0.5 mg/dL (0.2-1.2); Calc. Creatinine Clearance 0 mL/min (70-130); Calcium 9.6 mg/dL (7.8-10.44); Carbon Dioxide 26 mmol/L (23-31); Chloride 104 mmol/L (98-107); Estimated GFR 47; Globulin 2.8 g/dL (2.4-3.5); Glucose 153 mg/dL (83-110); Magnesium 1.1 mg/dL (1.6-2.6); Potassium 4.1 mmol/L (3.5-5.1); Sodium 139 mmol/L (136-145)
[2022-09-29] MEDS ORDERED: Magnesium 2 GM/50 ML BAG (IN WATER) ONE (16:48)
== END 2022-09-29 18:15 | disposition home or self-care (01) ==
LOC: ERS 14:10
DX: R42 Dizziness and giddiness (principal); I10 Essential (primary) hypertension; E83.42 Hypomagnesemia; E11.9 Type 2 diabetes mellitus without complications; E78.5 Hyperlipidemia, unspecified; Z79.82 Long term (current) use of aspirin; Z79.84 Long term (current) use of oral hypoglycemic drugs
CPT/HCPCS: 36415; 70450; 80053; 81003; 83735; 84443; 84484; 85025; 93005; 96365; J3475

== ENCOUNTER 2023-02-27 08:33 | Outpatient (CLI) | payer OTHER, MEDICAID | END 2023-02-27 08:34 | disposition home or self-care (01) | LOC: BICMAMMO 08:33 | PROVIDERS: ATTEND Internal Medicine Medical Oncology | DX: M85.851 Other specified disorders of bone density and structure, right thigh (principal); M85.852 Other specified disorders of bone density and structure, left thigh; C50.212 Malignant neoplasm of upper-inner quadrant of left female breast | CPT/HCPCS: 77080 ==

== ENCOUNTER 2023-05-27 08:42 | Outpatient (CLI) | payer OTHER, MEDICAID | END 2023-05-27 08:43 | disposition home or self-care (01) | LOC: RAD 08:42 | PROVIDERS: ATTEND Internal Medicine | DX: R06.00 Dyspnea, unspecified (principal); I51.7 Cardiomegaly; M47.819 Spondylosis without myelopathy or radiculopathy, site unspecified | CPT/HCPCS: 71046 ==

== ENCOUNTER 2023-09-17 12:41 | Outpatient (CLI) | payer OTHER, MEDICAID | END 2023-09-17 12:42 | disposition home or self-care (01) | LOC: BICMAMMO 12:41 | PROVIDERS: ATTEND Family Medicine | DX: Z12.31 Encounter for screening mammogram for malignant neoplasm of breast (principal); Z85.3 Personal history of malignant neoplasm of breast; Z98.890 Other specified postprocedural states | CPT/HCPCS: 77063; 77067 ==

== ENCOUNTER 2024-01-25 12:42 | Emergency (ER) | payer OTHER, MEDICAID ==
[2024-01-25 14:01] LABS: Influenza A by NAA Not Detected (NotDetected); Influenza B by NAA Not Detected (NotDetected); SARS-CoV-2 NAA Rapid Test Not Detected (NotDetected)
== END 2024-01-25 14:35 | disposition home or self-care (01) ==
LOC: ERS 12:42
DX: R05.9 Cough, unspecified (principal); I10 Essential (primary) hypertension; E11.9 Type 2 diabetes mellitus without complications
CPT/HCPCS: 0240U; 71046

== ENCOUNTER 2024-01-27 14:32 | Emergency (ER) | payer OTHER, MEDICAID ==
[~2024-01-27 14:32] MED LIST: Iopamidol-370 76% 500 ML MDV (1 ML CHARGE) ONE
[2024-01-27 16:55] LABS: Bacteria/HPF None Seen HPF (None Seen); Bilirubin Negative (Negative); Blood, Urine Negative (Negative); CAUTI Indications for Culture Pelvic or flank pain; Clarity Clear (Clear); Glucose, Urine (Dipstick) Normal (Negative); Ketone, Urine Negative (Negative); Leukocyte Negative Leu/uL (Negative); Nitrite Negative (Negative); Protein, Urine (Dipstick) 30 mg/dL (Neg-Trace); RBC/HPF None Seen HPF (0-3); Specific Gravity, Urine 1.015 (1.002-1.036); Squamous Epithelial 0-3 HPF (0-3); Urobilinogen Normal mg/dL (Less than 2); WBC/HPF 0-3 HPF (0-3)
[2024-01-27 16:56] LABS: Urine Culture Reflex No No
[2024-01-27 16:59] LABS: #Basophils Less than 0.03 10x3/uL (0.0-0.2); %Basophils 0.3 % (0.0-1.0); %Eosinophils 1.3 % (0.0-10.0); %Lymphocytes 15.7 % (21.0-51.0); %Monocytes 7.7 % (0.0-10.0); %Neutrophils 74.7 % (42.0-75.0); Hematocrit 31.7 % (36.0-47.0); Hemoglobin 10.5 g/dL (12.0-16.0); Mean Corpuscular HGB CONC 33.1 g/dL (32.0-36.0); Mean Corpuscular Hemoglobin 31.3 pg (27.0-31.0); Mean Corpuscular Volume 94.3 fL (78.0-98.0); Mean Platelet Volume 9.1 fL (7.4-10.4); Platelet Count 258 10x3/uL (130-400); RBC Distribution Width 11.3 % (11.5-14.5); Red Blood Cell (RBC) Count 3.36 mill/uL (4.20-5.40)
[2024-01-27 17:17] LABS: AST (SGOT) 21 U/L (5-34); Albumin 3.5 g/dL (3.4-4.8); Alkaline Phosphatase 67 U/L (40-110); Anion Gap 16 mmol/L (10-20); BUN (Urea Nitrogen) 25 mg/dL (9.8-20.1); Bilirubin, Total 0.4 mg/dL (0.2-1.2); Calc. Creatinine Clearance 0 mL/min (70-130); Calcium 9.1 mg/dL (7.8-10.44); Carbon Dioxide 23 mmol/L (23-31); Chloride 99 mmol/L (98-107); Estimated GFR 34; Globulin 3.7 g/dL (2.4-3.5); Glucose 138 mg/dL (83-110); Potassium 4.9 mmol/L (3.5-5.1); Protein, Total 7.2 g/dL (5.8-8.1); Sodium 133 mmol/L (136-145)
[2024-01-27 17:18] LABS: ALT (SGPT) 16 U/L (8-55); Lipase 40 U/L (8-78)
[2024-01-27 18:43] LABS: Troponin I Less than 0.010 ng/mL (< 0.028)
[2024-01-27 20:12] LABS: Influenza A by NAA Not Detected (NotDetected); Influenza B by NAA Not Detected (NotDetected); SARS-CoV-2 NAA Rapid Test Not Detected (NotDetected)
== END 2024-01-27 19:55 | disposition home or self-care (01) ==
LOC: ERS 14:32
DX: J18.9 Pneumonia, unspecified organism (principal); E11.9 Type 2 diabetes mellitus without complications; I10 Essential (primary) hypertension
CPT/HCPCS: 0240U; 71046; 71260; 80053; 81001; 83605; 83690; 84484; 85025; 87040; 93005; 36415; Q9967

== ENCOUNTER 2024-01-29 17:44 | Inpatient (IN) | payer OTHER, MEDICAID ==
[2024-01-29 20:59] LABS: #Basophils Less than 0.03 10x3/uL (0.0-0.2); %Basophils 0.1 % (0.0-1.0); %Lymphocytes 20.7 % (21.0-51.0); %Monocytes 8.1 % (0.0-10.0); Hematocrit 30.8 % (36.0-47.0); Hemoglobin 10.7 g/dL (12.0-16.0); Mean Corpuscular HGB CONC 34.7 g/dL (32.0-36.0); Mean Corpuscular Hemoglobin 32.7 pg (27.0-31.0); Mean Corpuscular Volume 94.2 fL (78.0-98.0); Mean Platelet Volume 8.8 fL (7.4-10.4); Platelet Count 301 10x3/uL (130-400); RBC Distribution Width 11.4 % (11.5-14.5); Red Blood Cell (RBC) Count 3.27 mill/uL (4.20-5.40)
[2024-01-29 21:19] LABS: ALT (SGPT) 12 U/L (8-55); AST (SGOT) 18 U/L (5-34); Albumin 3.3 g/dL (3.4-4.8); Alkaline Phosphatase 56 U/L (40-110); Anion Gap 12 mmol/L (10-20); BUN (Urea Nitrogen) 19 mg/dL (9.8-20.1); Bilirubin, Total 0.3 mg/dL (0.2-1.2); Calc. Creatinine Clearance 0 mL/min (70-130); Calcium 9.7 mg/dL (7.8-10.44); Carbon Dioxide 22 mmol/L (23-31); Chloride 106 mmol/L (98-107); Estimated GFR 36; Globulin 4.1 g/dL (2.4-3.5); Glucose 166 mg/dL (83-110); Lipase 26 U/L (8-78); Magnesium 1.5 mg/dL (1.6-2.6); Potassium 5.7 mmol/L (3.5-5.1); Protein, Total 7.4 g/dL (5.8-8.1); Sodium 134 mmol/L (136-145)
[2024-01-29 21:24] LABS: Troponin I Less than 0.010 ng/mL (< 0.028)
[2024-01-29] MEDS ORDERED: Ondansetron PF 4 MG/2 ML Vial ONE (22:51)
[2024-01-29] MEDS ORDERED: Magnesium 2 GM/50 ML BAG (IN WATER) ONE (22:51)
[2024-01-29 23:32] LABS: Anion Gap 14 mmol/L (10-20); BUN (Urea Nitrogen) 19 mg/dL (9.8-20.1); Calc. Creatinine Clearance 0 mL/min (70-130); Calcium 9.8 mg/dL (7.8-10.44); Carbon Dioxide 21 mmol/L (23-31); Chloride 105 mmol/L (98-107); Estimated GFR 37; Glucose 162 mg/dL (83-110); Potassium 5.6 mmol/L (3.5-5.1); Sodium 134 mmol/L (136-145)
[2024-01-30] MEDS ORDERED: cefTRIAXone (ROCEPHIN) 2 GM VIAL ONE (00:29)
[2024-01-30] MEDS ORDERED: Azithromycin 500 MG VIAL ONE (00:29)
[2024-01-30] MEDS ORDERED: HumaLOG 300 UNITS/3 ML VIAL ONE (00:30)
[2024-01-30 00:35] LABS: Bacteria/HPF None Seen HPF (None Seen); Bilirubin Negative (Negative); Blood, Urine Negative (Negative); CAUTI Indications for Culture Dysuria,urgency,freq; Clarity Clear (Clear); Glucose, Urine (Dipstick) Normal (Negative); Ketone, Urine Trace mg/dL (Negative); Leukocyte Negative Leu/uL (Negative); Nitrite Negative (Negative); Protein, Urine (Dipstick) 10 mg/dL (Neg-Trace); RBC/HPF 0-3 HPF (0-3); Specific Gravity, Urine 1.012 (1.002-1.036); Squamous Epithelial 0-3 HPF (0-3); Urobilinogen Normal mg/dL (Less than 2); WBC/HPF 0-3 HPF (0-3); pH, Urine 7.5 (5.0-9.0)
[2024-01-30 00:50] LABS: Urine Culture Reflex No No
[2024-01-30] MEDS ORDERED: hydrALAZINE 20 MG/ML VIAL ONE (01:00)
[2024-01-30] MEDS ORDERED: Dextrose 10% in Water 250 ML ONE (01:14)
[2024-01-30 01:16] LABS: Influenza A by NAA Not Detected (NotDetected); Influenza B by NAA Not Detected (NotDetected); SARS-CoV-2 NAA Rapid Test Not Detected (NotDetected)
[2024-01-30] MEDS ORDERED: Acetaminophen 650 MG/20.3 ML UDCUP PO PRN ×2 (02:18→03:32)
[2024-01-30] MEDS ORDERED: Ondansetron ODT 4 MG TAB SL PRN (02:30)
[2024-01-30] MEDS ORDERED: Ondansetron PF 4 MG/2 ML Vial IVP PRN ×2 (02:30→08:34)
[2024-01-30 02:31] VITALS: BMI 39.1
[2024-01-30] MEDS ORDERED: Glucagon 1 MG/ML KIT IM PRN (03:32)
[2024-01-30] MEDS ORDERED: Dextrose 50% Abboject 50 ML SYRINGE SLOW IVP PRN (03:32)
[2024-01-30] MEDS ORDERED: Dextrose 5% in Water 1,000 ML IV PRN (03:32)
[2024-01-30] MEDS ORDERED: Insulin Lispro 100 UNIT/ML 10 ML VIAL SC PRN (03:32)
[2024-01-30] MEDS: Sodium Chloride 0.9% 1,000 ML IV SCH (04:22)
[2024-01-30] MEDS: Ketorolac Tromethamine 30 MG (1 mL) VIAL IVP SCH (04:23)
[2024-01-30 04:52] LABS: ALT (SGPT) 13 U/L (8-55); AST (SGOT) 19 U/L (5-34); Albumin 3.5 g/dL (3.4-4.8); Alkaline Phosphatase 57 U/L (40-110); Anion Gap 13 mmol/L (10-20); BUN (Urea Nitrogen) 15 mg/dL (9.8-20.1); Bilirubin, Total 0.2 mg/dL (0.2-1.2); Calc. Creatinine Clearance 46 mL/min (70-130); Calcium 9.8 mg/dL (7.8-10.44); Carbon Dioxide 20 mmol/L (23-31); Chloride 108 mmol/L (98-107); Estimated GFR 37; Globulin 4.1 g/dL (2.4-3.5); Glucose 236 mg/dL (83-110); Magnesium 1.7 mg/dL (1.6-2.6); Potassium 4.8 mmol/L (3.5-5.1); Protein, Total 7.6 g/dL (5.8-8.1); Sodium 136 mmol/L (136-145)
[2024-01-30 04:57] LABS: Legionella Urinary Ag Negative (Negative); Strep pneumo Urine Ag NEGATIVE (NEGATIVE)
[2024-01-30 05:23] LABS: #Basophils 0.05 10x3/uL (0.0-0.2); %Basophils 0.4 % (0.0-1.0); %Eosinophils 1.5 % (0.0-10.0); %Lymphocytes 12.3 % (21.0-51.0); %Monocytes 6.9 % (0.0-10.0); %Neutrophils 77.5 % (42.0-75.0); Hematocrit 33.9 % (36.0-47.0); Hemoglobin 11.2 g/dL (12.0-16.0); Mean Corpuscular Hemoglobin 31.5 pg (27.0-31.0); Mean Corpuscular Volume 95.5 fL (78.0-98.0); Mean Platelet Volume 8.8 fL (7.4-10.4); Platelet Count 296 10x3/uL (130-400); RBC Distribution Width 11.6 % (11.5-14.5); Red Blood Cell (RBC) Count 3.55 mill/uL (4.20-5.40)
[2024-01-30] MEDS: Insulin Lispro 100 UNIT/ML 10 ML VIAL SC PRN (05:52)
[2024-01-30] MEDS: Heparin 5,000 UNITS/ML VIAL SC SCH (08:20)
[2024-01-30] MEDS: Valsartan 80 MG TAB PO SCH (09:09)
[2024-01-30] MEDS: Aspirin Chewable 81 MG TAB PO SCH (09:09)
[2024-01-30] MEDS: Atorvastatin Calcium 10 MG TAB PO SCH (20:30)
[2024-01-30] MEDS: cefTRIAXone\\ROCEPHIN 1 GM in Sodium Chloride 0.9% 100 ML IVPB SCH (20:30)
[2024-01-30] MEDS ORDERED: Pravastatin Sodium 40 MG TAB PO SCH (21:00)
[2024-01-30] MEDS: Doxycycline 100 MG CAP PO SCH (21:40)
[2024-01-30] MEDS: Melatonin 3 MG TAB PO PRN (21:40)
[2024-01-31 05:41] LABS: #Basophils 0.03 10x3/uL (0.0-0.2); %Basophils 0.4 % (0.0-1.0); %Eosinophils 3.6 % (0.0-10.0); %Lymphocytes 24.7 % (21.0-51.0); %Neutrophils 63.3 % (42.0-75.0); Hematocrit 30.9 % (36.0-47.0); Hemoglobin 10.1 g/dL (12.0-16.0); Mean Corpuscular HGB CONC 32.7 g/dL (32.0-36.0); Mean Corpuscular Hemoglobin 31.7 pg (27.0-31.0); Mean Corpuscular Volume 96.9 fL (78.0-98.0); Mean Platelet Volume 8.6 fL (7.4-10.4); Platelet Count 278 10x3/uL (130-400); RBC Distribution Width 11.9 % (11.5-14.5); Red Blood Cell (RBC) Count 3.19 mill/uL (4.20-5.40)
[2024-01-31 05:52] LABS: Anion Gap 14 mmol/L (10-20); BUN (Urea Nitrogen) 20 mg/dL (9.8-20.1); Calc. Creatinine Clearance 46 mL/min (70-130); Calcium 9.7 mg/dL (7.8-10.44); Carbon Dioxide 19 mmol/L (23-31); Chloride 109 mmol/L (98-107); Estimated GFR 37; Glucose 160 mg/dL (83-110); Potassium 4.9 mmol/L (3.5-5.1); Sodium 137 mmol/L (136-145)
[2024-01-31 11:01] VITALS: TEMP 98.3
[2024-01-31 13:58] VITALS: BP 192/76
== END 2024-01-31 12:31 | disposition home or self-care (01) | DRG 682 ==
LOC: ERS 17:44 → 2NO 01-30 00:44
PROVIDERS: ADMIT Student in an Organized Health Care Education/Training Program; ATTEND Internal Medicine
DX: N17.9 Acute kidney failure, unspecified (principal); J18.9 Pneumonia, unspecified organism; E11.9 Type 2 diabetes mellitus without complications; E78.5 Hyperlipidemia, unspecified; I12.9 Hypertensive chronic kidney disease with stage 1 through stage 4 chronic kidney disease, or unspecified chronic kidney disease; N18.31 Chronic kidney disease, stage 3a; E83.42 Hypomagnesemia; Z85.3 Personal history of malignant neoplasm of breast; Z79.82 Long term (current) use of aspirin; Z79.899 Other long term (current) drug therapy
CPT/HCPCS: 36415; 36416; 71045; 71046; 71260; 74177; 80048; 80053; 81001; 82607; 83605; 83690; 83735; 83880; 84145; 84484; 85025; 87040; 87086; 87449; 87899; 93005; J0360; J0456; J0696; J1644; J1815; J1885; J2405; J3475; J3490; J7050; Q9967

== ENCOUNTER 2024-05-25 09:17 | Outpatient (CLI) | payer OTHER | END 2024-05-25 09:18 | disposition home or self-care (01) | LOC: RAD 09:17 | PROVIDERS: ATTEND Internal Medicine | DX: J40 Bronchitis, not specified as acute or chronic (principal); J98.4 Other disorders of lung; R91.8 Other nonspecific abnormal finding of lung field; M47.814 Spondylosis without myelopathy or radiculopathy, thoracic region; M51.34 Other intervertebral disc degeneration, thoracic region; M25.78 Osteophyte, vertebrae | CPT/HCPCS: 71046 ==

== ENCOUNTER 2024-09-27 08:49 | Outpatient (CLI) | payer MEDICARE, MEDICAID | END 2024-09-27 08:50 | disposition home or self-care (01) | LOC: BICMAMMO 08:49 | PROVIDERS: ATTEND Family Medicine | DX: Z12.31 Encounter for screening mammogram for malignant neoplasm of breast (principal); Z98.890 Other specified postprocedural states | CPT/HCPCS: 77063; 77067 ==

== ENCOUNTER 2025-03-23 10:35 | Outpatient (CLI) | payer OTHER | END 2025-03-23 10:36 | disposition home or self-care (01) | LOC: BICRAD 10:35 | PROVIDERS: ATTEND Family Medicine | DX: M25.512 Pain in left shoulder (principal); M19.012 Primary osteoarthritis, left shoulder ==

== ENCOUNTER 2025-04-01 08:20 | Outpatient (CLI) | payer OTHER, MEDICAID | END 2025-04-01 08:21 | disposition home or self-care (01) | LOC: BICMAMMO 08:20 | PROVIDERS: ATTEND Nurse Practitioner Family | DX: Z78.0 Asymptomatic menopausal state (principal); M85.89 Other specified disorders of bone density and structure, multiple sites | CPT/HCPCS: 77080 ==